=== PATIENT | female | born 1960 | race American Indian/Alaskan Native ===

== ENCOUNTER 2017-05-02 12:21 | Emergency (ER) | payer MEDICAID ==
[2017-05-02 12:31] VITALS: BMI 32.8
[2017-05-02 12:35] VITALS: RESP 18; TEMP 97.7; O2SAT 97
--- NOTE | 2017-05-02 13:43 | C.PDOC ---
History Of Present Illness 56 yr old female present to the ER with left lower leg swelling for the past month. Patient states the swelling comes and goes but sometimes stays for few days. Patient states she was seen by Dr. Yoon who sent her here with a prescription for a dopplar. Patient denies injury, fever, back pain, weakness or numbness. Time Seen by Provider: 05/02/17 13:11 Chief Complaint (Nursing): Lower Extremity Problem/Injury History Per: Patient History/Exam Limitations: no limitations Onset/Duration Of Symptoms: Intermittent Episodes (1 month ) Past Medical History Reviewed: Historical Data, Nursing Documentation, Vital Signs Vital Signs: Last Vital Signs Temp 97.7 F 05/02/17 12:32 Pulse 76 05/02/17 14:32 Resp 18 05/02/17 14:32 BP 146/82 05/02/17 14:32 Pulse Ox 97 05/02/17 14:36 - Medical History PMH: HTN, Hypercholesterolemia, Hyperthyroidism - [facility] Procedures ENDOSC POLYPECTOMY OF LG INTEST (03/28/14) Family History: States: No Known Family Hx - Social History Hx Alcohol Use: No Hx Substance Use: No Review Of Systems Except As Marked, All Systems Reviewed And Found Negative. Constitutional: Negative for: Fever Musculoskeletal: Positive for: Other ((+) Left lower leg swelling ). Negative for: Back Pain Neurological: Negative for: Weakness, Numbness Physical Exam - Physical Exam Appears: Non-toxic, No Acute Distress Skin: Warm, Dry, No Rash Head: Atraumatic, Normacephalic Eye(s): bilateral: Normal Inspection, PERRL, EOMI Oral Mucosa: Moist Neck: Normal ROM Cardiovascular: Rhythm Regular Respiratory: Normal Breath Sounds Gastrointestinal/Abdominal: Soft, No Tenderness Back: Normal Inspection Extremity: Normal ROM, No Calf Tenderness, Capillary Refill (<2), Other ((+) 2- 3 swelling from left mid calf, down. ) Neurological/Psych: Oriented x3, Normal Speech, Normal Motor Gait: Steady ED Course And Treatment O2 Sat by Pulse Oximetry: 97 (RA) Pulse Ox Interpretation: Normal - CT Scan/US Dopplar Other Rad Studies (CT/US): Read By Radiologist, Radiology Report Reviewed CT/US Interpretation: Negative for DVT Medical Decision Making Medical Decision Making: PLAN: * Dopplar The doppler was negative for DVT, patient was instructed to follow up with Dr. Yoon within 1-2 days. Disposition - Disposition Referrals: Alberto Yoon MD [Staff Provider] - Disposition: HOME/ ROUTINE Disposition Time: 14:35 Condition: GOOD Additional Instructions: Follow up with Dr. Yoon within 1-2 days. return if worsened. 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 - Scribe Statement The provider has reviewed the documentation as recorded by the Scribe Yuliana Brown All medical record entries made by the Scribe were at my direction and personally dictated by me. I have reviewed the chart and agree that the record accurately reflects my personal performance of the history, physical exam, medical decision making, and the department course for this patient. I have also personally directed, reviewed, and agree with the discharge instructions and disposition.
[2017-05-02 14:33] VITALS: BP 146/82; PULSE 76
--- NOTE | 2017-05-04 12:36 | VASCLAB ---
PROCEDURE: Left Lower Extremity Venous Duplex Exam. HISTORY: calf swell, tender, r/o DVT PRIORS: None. TECHNIQUE: Left common femoral, femoral, popliteal and posterior tibial, peroneal and great saphenous veins were evaluated. Flow was assessed with color Doppler, compressibility, assessment of phasic flow and augmentation response. Report prepared by BRI Mason, RVT FINDINGS: LEFT: 1. Common Femoral Vein: 1.1. Compressibility - Fully compressible: Thrombus - None : Flow - Phasic: Augmentation -Normal: Reflux - None. 2. Femoral Vein: 2.1. Compressibility - Fully compressible: Thrombus - None: Flow - Phasic: Augmentation -Normal: Reflux - None. 3. Popliteal Vein: 3.1. Compressibility - Fully compressible: Thrombus - None: Flow - Phasic: Augmentation -Normal: Reflux - Severe. 4. Posterior Tibial Vein: 4.1. Compressibility - Fully compressible: Thrombus - None: Flow - Phasic: Augmentation -Normal: Reflux - Severe. 5. Peroneal Vein: 5.1. Compressibility - Fully compressible: Thrombus - None: Flow - Phasic: Augmentation -Normal: Reflux - None. 6. Great Saphenous Vein: 6.1. Compressibility - Fully compressible: Thrombus - None: Flow - Phasic: Augmentation - Normal: Reflux - None. OTHER FINDINGS: Severe valvular incompetence of the left popliteal and posterior tibial veins. IMPRESSION: No evidence of deep or superficial vein thrombosis of the left lower extremity with excellent venous flow. Normal venous flow noted in the right common femoral vein.
== END 2017-05-02 14:45 | disposition home or self-care (01) ==
LOC: C.ER 12:21
DX: R60.0 Localized edema (principal)